=== PATIENT | male | born 1980 | race African-American/Black ===

== ENCOUNTER 2017-09-29 16:27 | Emergency (ER) | payer OTHER ==
[~2017-09-29] VITALS: Ht 167.6 cm; Wt 80.0 kg
[2017-09-29 22:30] VITALS: BP 128/68
== END 2017-09-29 22:50 | disposition left against medical advice (07) | DRG 552 ==
LOC: ED 16:27
DX: M54.2 Cervicalgia (principal); M54.5 Low back pain; V43.02XA Car driver injured in collision with other type car in nontraffic accident, initial encounter; Y92.481 Parking lot as the place of occurrence of the external cause; Z91.19 Patient's noncompliance with other medical treatment and regimen